=== PATIENT | male | born 1985 | race Caucasian/White ===

== ENCOUNTER 2025-02-12 20:22 | Emergency (ER) | payer BC, SELFPAY ==
[2025-02-12] VITALS (12 sets, daily range): BP systolic 120; BP diastolic 79; PULSE 63–89; RESP 10–18; TEMP 36.7; O2SAT 96–100
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
[2025-02-12] MEDS: Normal Saline 1,000 ML 1000 ML IV (20:52)
[2025-02-12 21:03] LABS: Abs Immature Grans 0.03 10^3/uL (0.0-0.06); HCT 44.8 % (40.0-50.0); HGB 15.6 g/dL (13.5-17.5); Immature Grans % 0.5 %; MCH 30.5 pg (27.0-33.0); MCHC 34.8 % (32.0-36.0); MCV 88 fL (80-95); MPV 10.2 fL (8.0-11.0); Platelet Count 221 10^3/uL (130-400); RBC 5.12 10^6/uL (4.36-5.78); RDW 12.1 % (11.8-14.1); RDW-SD 38.5 fL; WBC 6.34 10^3/uL (4.4-10.8)
[2025-02-12 21:31] LABS: ALT 46 U/L (16-63); AST 21 U/L (15-37); Albumin 4.4 g/dL (3.4-5.0); Alkaline Phosphatase 59 U/L (46-116); Anion Gap 6.4 mmol/L (3-11); BUN 12 mg/dL (7-18); Bilirubin, Total 0.5 mg/dL (0.2-1.0); CO2 30.6 mmol/L (21.0-32.0); Calcium 8.8 mg/dL (8.5-10.1); Chloride 101 mmol/L (98-107); Creatine Kinase 56 U/L (39-308); Estimated GFR 111.42 (mL/min/1.73m2); Glucose 95 mg/dL (74-106); Magnesium 1.9 mg/dL (1.8-2.4); Potassium 3.6 mmol/L (3.5-5.1); Sodium 138 mmol/L (136-145); Total Protein 8.1 g/dL (6.4-8.2); Troponin I 21 ng/L (<or=76)
[2025-02-12 21:38] LABS: Glucose Negative (Negative)
[2025-02-12 22:24] LABS: Troponin I 19 ng/L (<or=76)
== END 2025-02-12 22:34 | disposition home or self-care (01) ==
PROVIDERS: Emergency Provider Emergency Medicine; PCP Nurse Practitioner Family
DX: T75.4XXA Electrocution, initial encounter (principal)
CPT/HCPCS: 36415; 80053; 82550; 93005; 96360; 96361; 99284; 81003; 83735; 84484; 85025; 93010; 99283